=== PATIENT | female | born 1955 | race Native Hawaiian/Other Pacific Islander ===

== ENCOUNTER 2017-07-29 06:41 | Day surgery (SDC) | payer OTHER, SELFPAY ==
[2017-07-13 08:49] VITALS: BMI 17.9
[2017-07-29] VITALS (11 sets, daily range): BP systolic 150–176; BP diastolic 84–97; PULSE 73–99; RESP 11–18; TEMP 36.1–36.9; O2SAT 97–100; BMI 17.9
[2017-07-29] MEDS: LACTATED RINGERS 1,000 ML 42 ML IV (08:30)
[2017-07-29] MEDS: CEFAZOLIN 2 GM/100 ML FROZ.PIGGY IV (08:45)
[2017-07-29] MEDS: BUPIVACAINE 0.5% W/ EPI (PF) 30 ML VIAL INJ (09:07)
--- NOTE | 2017-07-29 09:28 | P.OP_ITS ---
Operative Date/Time/Diagnoses - Date of procedure: 07/29/17 Time of procedure: 09:25 Pre-op diagnosis: Left basal thumb arthritis Post-op diagnosis: same Procedure & Clinicians Procedure: Left LRTI Same procedure as scheduled: Yes Indications: Left basal thumb arthritis Surgeon: Austin Lockwood Grocery Clerk: Sheila Adames Anesthesia Type: General Operative Notes Findings: Arthritis to the 1st basal joint Closure Type: primary Specimen(s): none sent Implants & Drains: Tenodesis screw Applied: implant(s) Estimated Blood Loss (mL): 5 Blood products transfused: none Procedure in detail: On date of service, the patient was met in the holding area. The operative site was signed and witnessed by the OR staff. The surgery was once again discussed with patient, and any remaining questions Were answered fully. Patient was taken back to the operating theater and placed on the operating table in a supine position. Great care was taken to ensure that all bony prominences were properly padded. A well-padded tourniquet was placed up along the upper extremity. A timeout was performed verifying patient's name, procedure, and operative site. The arm was prepped and draped in the normal sterile fashion. An Esmarch was used to exsanguinate the limb and the tourniquet was turned up to 250 mm mercury. A 15 blade was used to incise the skin only in a dorsal radial position. Pickups and tenotomy 3 used to dissect down through the fascial tissue. Great care was taken to ensure that the branches off the superficial radial nerve root identified and protected. Next, an interval was made between EPB and APL. The recurrent branch of the radial artery was identified and protected. The capsular tissues surrounding the basal joints was opened and released around the trapezium and a 360? fashion. This gave us good visualization of the basal joint as well as the trapezial scaphoid joint. Significant arthritis at the basal joints but no sign of any arthritis at the trapezial scaphoid joint. Next the trapezium was removed as well as any potential osteophytes. The wound was then copiously irrigated to remove any remaining bony fragments. The FCR tendon was then harvested. A drill was then used to make a bony tunnel through the first metacarpal. Guidewire was placed through the bony tunnel and the FCR tendon was pulled through the bony tunnel. With the tendon under tension , a tenodesis screw was placed securing the tendon into the bony tunnel. This provided a secure suspension plasty of the thumb, as well as recreating the beak ligament. The wound was irrigated once again. A thick capsular closure was performed using 2-0 Ethibond. The rest of the wound was closed in a layered fashion. The hand was then cleaned, dried, and dressed. Patient was placed into a thumb spica splint. Patient was taken back to the PACU in stable condition. Complications: none Condition: stable Disposition: PACU Plan for aftercare: Splint by 2 weeks followed by a removable brace. No restriction to thumb and wrist range of motion 2 weeks postop
[2017-07-29] MEDS: fentaNYL 100 MCG/2 ML INJ 50 MCG IV ×2 (09:49→09:57)
[2017-07-29] MEDS: OXYCODONE/ACETAMINOPHEN 5/325 TABLET 1 TAB PO (10:53)
--- NOTE | 2017-07-29 11:04 | SUR.PHASEII ---
ASSUMED CARE FROM [place] GRAVES LOW, LOCKED, BROUGHT IN, CALL [place] ATTACHED TO BED. DRESSING TO L WRIST REMAINED C/D/I. VSS, BP HIGH- AT BASELINE PER ... SHE HAS WHITE COAT SYNDROM. PT DRESSED WHEN READY TO GO.
--- NOTE | 2017-07-29 11:18 | SUR.PHASEII ---
PT READY TO GO HOME, ASSISSTED PT TO DRESS.
== END 2017-07-29 11:20 | disposition home or self-care (01) ==
PROVIDERS: PCP Internal Medicine; Visit Provider Orthopaedic Surgery
PROC: (CPT 26540; principal; 2017-07-29 08:30)
DX: M19.042 Primary osteoarthritis, left hand (principal); I10 Essential (primary) hypertension; J45.909 Unspecified asthma, uncomplicated; E27.40 Unspecified adrenocortical insufficiency
CPT/HCPCS: 25447; 25310; J0690; J1100; J2250; J2405; J2704; J3010

== ENCOUNTER → 2017-10-22 10:45 | Outpatient (CLI) | payer OTHER, SELFPAY ==
--- NOTE | 2017-10-22 | DI.MG.S_ITS ---
BILATERAL DIGITAL SCREENING MAMMOGRAM 3D/2D WITH CAD: 10/22/2017 CLINICAL: Routine screening. Comparison is made to exams dated: 08/10/2016 mammogram, 08/07/2015 mammogram, and 08/07/2014 mammogram - [facility]. The tissue of both breasts is predominantly fatty. Current study was also evaluated with a Computer Aided Detection (CAD) system. There is a 0.5 cm oval mass in the left breast posterior depth lateral region seen on the craniocaudal view only. Finding is best noted on tomographic CC slice 39/69 where it appears to localize to the 3 o'clock position of the lateral left breast. This oval mass is not seen on more recent comparison exams but appears to be present on comparison exam of 08/07/2014, where it appeared smaller than on current exam. No other significant masses, calcifications, or other findings are seen in either breast. IMPRESSION: INCOMPLETE: NEEDS ADDITIONAL IMAGING EVALUATION The 0.5 cm oval mass in the left breast is indeterminate and may represent a lymph node. Additional views with possible ultrasound are recommended. This exam was interpreted at Station ID: [id number]. NOTE: For mammograms, a report in lay terms will be sent to the patient. Approximately 15% of breast malignancies will not be visualized mammographically. In the management of a palpable breast mass, a negative mammogram must not discourage biopsy of a clinically suspicious lesion. Electronically Signed By: Familia Smith M.D. ecl/:10/24/2017 22:07:42 letter sent: Additional Imaging Needed ACR BI-RADS Category 0: Incomplete [id number]
== END ==
PROVIDERS: PCP Internal Medicine; Visit Provider Internal Medicine
DX: Z12.31 Encounter for screening mammogram for malignant neoplasm of breast (principal)
CPT/HCPCS: 77063; 77067

== ENCOUNTER 2018-12-07 18:36 | Emergency (ER) | payer OTHER, SELFPAY ==
[2018-12-07 18:50] VITALS: BP 171/82; PULSE 86; RESP 16; TEMP 36.8; O2SAT 99
--- NOTE | 2018-12-07 19:27 | ED_ITS ---
HPI - Back Pain/Injury General Chief Complaint: Back Pain/Injury Stated Complaint: back pain,tingling in legs,nausea Time Seen by Provider: 12/07/18 19:04 Source: patient, family and old records reviewed Mode of arrival: Ambulatory Limitations: no limitations History of Present Illness HPI Narrative: Patient is a 63 year old female with history of adrenal insufficiency and radiculopathy, presenting today with worsening left sided back pain radiating down her leg. She is scheduled to see Dr. Kaye a biochemistry specialist tomorrow but not sure she will make it. She has been taking tylenol only for pain due to gastric ulcers secondary to ibuprofen use. She says today she was bending over scrubbing the bath tub which is something that she typically does. Tonight while cooking dinner she said the pain got much worse. states that a few days ago she moved a 3 gal jug of water. She also earlier felt dizzy and lightheaded she did not pass out she no longer feels dizzy. She has been taking her adrenal insufficiency medications religiously. Her says that she had a crisis a few years ago on wants to make sure that she is not in crisis. MD Complaint: back pain Duration: constant Location: lumbar spine and thoracic spine Quality: sharp Radiation: left leg Related Data Home Medications Medication Instructions Recorded Confirmed amlodipine [Norvasc] 5 mg PO QAM 07/13/17 07/29/17 cetirizine 10 mg PO QAM 07/13/17 07/29/17 clonidine HCl 0.1 mg PO BID 07/13/17 07/29/17 fluticasone propionate 2 puff INHALATION BID 07/13/17 07/29/17 hydrocortisone 15 mg PO QAM 07/13/17 07/29/17 ibuprofen 250 mg PO Q4H PRN 07/13/17 07/28/17 losartan 100 mg PO BEDTIME 07/13/17 07/29/17 omeprazole 20 mg PO QAM 07/13/17 07/29/17 salmeterol 1 inh INHALATION BID 07/13/17 07/29/17 trazodone 25 - 50 mg PO BEDTIME PRN 07/13/17 07/29/17 acetaminophen 500 - 1,000 mg PO Q6H PRN 07/28/17 07/29/17 albuterol sulfate 2 puff INHALATION Q4-6H PRN 07/28/17 07/29/17 docusate calcium 240 mg PO BID 07/28/17 07/29/17 fluticasone propionate 2 spray INTRANASAL DAILY 07/28/17 07/29/17 hydrocortisone 5 mg PO QPM 07/28/17 07/29/17 Previous Rx's Medication Instructions Recorded hydroxyzine HCl 25 mg PO BEDTIME #30 tab 07/29/17 oxycodone-acetaminophen [Percocet] 2 tab PO Q4-6H PRN #60 tab 07/29/17 cyclobenzaprine 5 mg PO TID PRN #10 tab 12/07/18 hydrocodone-acetaminophen [[place]] 1 tab PO Q6H PRN #10 tab 12/07/18 Allergies Allergy/AdvReac Type Severity Reaction Status Date / Time No Known Drug Allergies Allergy Verified 07/13/17 09:48 Review of Systems Review of Systems Narrative: GENERAL: Denies chills, fatigue, malaise, fever, sweats, travel HEENT: Denies sinus pain, ear pain, sore throat, difficulty swallowing, neck pain RESPIRATORY: Denies dyspnea, cough, wheezing, hemoptysis, sputum. CARDIOVASCULAR: All lightheaded Denies chest pain, palpitations, orthopnea, edema GASTROINTESTINAL: Denies nausea, vomiting, abdominal pain, diarrhea, constipation, melena. : Denies dysuria, frequency, incontinence, hematuria, urinary retention, flank pain. MUSCULOSKELETAL: See HPI SKIN: No rash, no erythema, no pruritus NEUROLOGIC: Denies weakness, dizziness, headache, numbness, change in speech, confusion PSYCHIATRIC: No concerning psychosocial issues. 12 point review of systems is negative except for those stated above and HPI Patient History Medical History Adrenal insufficiency (Acute) Asthma (Acute) Chest pain, non-cardiac (Acute) Chronic insomnia (Acute) Chronic pain syndrome (Acute) Constipation (Acute) Esophageal reflux (Acute) Finger infection (Acute) History of hepatitis B (Acute) History of syncope (Acute) History of systemic steroid therapy (Acute) History of urinary tract infection (Acute) Hypertension (Acute) Hyponatremia (Acute) Left hand pain (Acute) Left wrist pain (Acute) Murmur (Acute) Osteoporosis (Acute) Pain of left thumb (Acute) Prediabetes (Acute) Seasonal allergies (Acute) Surgical History H/O: hysterectomy (Acute) History of colonoscopy (Acute) Hx of cholecystectomy (Acute) Hx of prior ablation treatment (Acute) Social History household members: spouse Smoking Status: Never smoker alcohol intake: former Substance Use Type: does not use Exam Initial Vital Signs Initial Vital Signs: Vital Signs Temperature 98.2 F 12/07/18 18:50 Pulse Rate 86 12/07/18 18:50 Respiratory Rate 16 12/07/18 18:50 Blood Pressure 171/82 H 12/07/18 18:50 Pulse Oximetry 99 12/07/18 18:50 GENERAL: Well-appearing female she is tearful upon questioning. HEENT: Head atraumatic,EOMI, pupils reactive, face symmetric CARDIOVASCULAR: Regular rate and rhythm without murmurs, rubs or gallops. RESPIRATORY: Breath sounds equal bilaterally, no wheezes rales or rhonchi. ABDOMEN: Soft, nontender. Normoactive bowel sounds all 4 quadrants. No guarding or rebound. BACK: No vertebral tenderness, no step-offs, slightly decreased sensation in left leg but strength is equal bilaterally. she states radiation is lateral. No change in sensation in the saddle area EXTREMITIES: Normal range of motion, no clubbing or edema. Neurovascularly intact NEUROLOGICAL: Alert and oriented x4.Normal gait and speech. SKIN: Warm, dry, no laceration, no petechiae, no rashes or lesions. Course Orders Ordered: ED Orders 12/07/18 19:45 Complete Blood Count AUTO DIFF Stat Comprehensive Metabolic Panel Stat Discontinued Medications Hydrocodone Bitart/Acetaminophen (Vicodin Prepack) 1 bottle MISC SEEINSTR ONE Stop: 12/07/18 20:56 Last Admin: 12/07/18 21:21 Dose: 1 bottle Documented by: AGATA Hydrocodone Bitart/Acetaminophen ([place] 5/325) 1 tab PO NOW ONE Stop: 12/07/18 21:16 Last Admin: 12/07/18 21:20 Dose: 1 tab Documented by: AGATA Cyclobenzaprine HCl (Flexeril) 5 mg PO NOW ONE Stop: 12/07/18 20:37 Last Admin: 12/07/18 20:44 Dose: 5 mg Documented by: AGATA Cyclobenzaprine HCl (Flexeril 10 Mg Prepack) 1 bottle MISC SEEINSTR ONE Stop: 12/07/18 20:56 Last Admin: 12/07/18 21:21 Dose: 1 bottle Documented by: AGATA Morphine Sulfate (Morphine) 2 mg IV NOW ONE Stop: 12/07/18 19:39 Last Admin: 12/07/18 20:00 Dose: 2 mg Documented by: DEMETRI Vital Signs Vital signs: Vital Signs - 8 hr 12/07/18 18:50 12/07/18 20:33 Temperature 98.2 F Pulse Rate 86 70 Respiratory Rate 16 14 Blood Pressure 171/82 H Blood Pressure [Right Arm] 160/87 H Pulse Oximetry 99 98 MDM - Back Pain/Injury Lab Data Attestation: I reviewed the patient's lab results. Result diagrams: 12/07/18 19:45 12/07/18 19:45 Labs: Lab Results 12/07/18 12/07/18 Range/Units 19:45 19:45 WBC 5.0 (4.5-11.0) X10^3/uL RBC 4.18 (4.0-5.2) X10^6/uL Hgb 13.6 (12.0-16.0) g/dL Hct 38.9 (36-46) % MCV 92.9 (80-100) fL MCH 32.4 (26-34) PG MCHC 34.9 (30-36) % RDW 13.6 (11.6-14.8) % Plt Count 280 (150-400) X10^3/uL Neut % (Auto) 60.7 (50-75) % Lymph % (Auto) 24.2 L (25-40) % Saline % (Auto) 10.4 (3-14) % Eos % (Auto) 3.8 (2-4) % Baso % (Auto) 0.9 (0-2) % Neut # (Auto) 3100 (4693-6866) /uL Lymph # (Auto) 1200 (6347-2712) /uL Saline # (Auto) 500 (0-900) /uL Eos # (Auto) 200 (0-450) /uL Baso # (Auto) 0 (0-100) /uL Sodium 132 L (137-145) mmol/L Potassium 3.8 (3.4-5.1) mmol/L Chloride 94 L (98-107) mmol/L Carbon Dioxide 25 (22-32) mmol/L BUN 9 (7-17) mg/dL Creatinine 0.40 L (0.52-1.04) mg/dL Estimated GFR > 60.0 (>60) mL/min BUN/Creatinine Ratio 22.5 H (6-22) Glucose 100 (80-110) mg/dL Calcium 9.7 (8.4-10.2) mg/dL Total Bilirubin 0.4 (0.2-1.3) mg/dL AST 39 H (14-36) IU/L ALT 19 (9-52) IU/L Alkaline Phosphatase 101 (38-126) U/L Total Protein 8.8 H (6.3-8.2) g/dL Albumin 5.1 H (3.5-5.0) g/dL Globulin 3.7 (1.7-4.1) g/dL Albumin/Globulin Ratio 1.4 (1.0-2.8) MDM Narrative Medical decision making narrative: Patient is unlikely to be an adrenal insufficiency she is not nauseous or vomiting no abdominal pain. She not had any fever I do not think she has water house Tom since syndrome there are no purpura or infectious signs. She does have no radiculopathy she has had an MRI she sees a spinal surgeon tomorrow. At this time will control her back pain. And follow up closely tomorrow as previously arranged. She is given Flexeril and [place] and morphine in the ED. She is also given pre packs and prescriptions for both. Discharge Plan Departure Patient Disposition: Home Clinical Impression: Acute exacerbation of chronic low back pain Radiculopathy Qualifiers: Spinal region: lumbosacral Qualified Code(s): M54.17 - Radiculopathy, lumbosacral region Discharge Date/Time: 12/07/18 21:30 Instructions: DI for Back Pain With Sciatica Activity Restrictions/Additional Instructions: *You have been diagnosed with acute on chronic back pain with radiculopathy *What to do: At this time no sign of adrenal insufficiency. I recommend that you do no strenuous activity, no heavy lifting nothing more than 10 lb, no sitting for more than 30 minutes, light activity such as walking for short distances may be acceptable. *Continue to take medications as directed [place] 1 tablet every 6 hours if needed for severe pain For Flexeril 5 mg every 8 hours if needed for pain *Follow up with your primary care provider in 2-3 days *Return to ER if you should have a change in urination, leg weakness, fevers, passing out, dizziness, lightheadedness or any new, worsening or concerning symptoms CONTROLLED SUBSTANCE DISCHARGE (Narcotoic/benzodiazepine/Flexeril/Phenergan) 1. You have been prescribed narcotic medications, it does have acetamino phen/Tylenol/paracetamol in it so do not take extra Tylenol or Tylenol containing products 2. Please understand that we cannot provide further refills of narcotics, benzodiazepines or controlled substances through the ED and her pain management will need to be through your provider. 3. While on these medications you cannot drive or operate heavy machinery. 4. You cannot sign legal documents or perform any duties such as this. 5. As long as you're taking opiate pain medications he should also be taking a stool softener such as Colace, Dulcolax, MiraLAX or prune juice, to help avoid constipation. Prescriptions: New hydrocodone-acetaminophen [[place]] 5-325 mg tablet 1 tab PO Q6H PRN (Reason: pain) Qty: 10 RF: 0 cyclobenzaprine 5 mg tablet 5 mg PO TID PRN (Reason: muscle spasm) Qty: 10 RF: 0 No Action hydrocortisone 5 mg Tablet 15 mg PO QAM RF: 0 clonidine HCl 0.1 mg Tablet 0.1 mg PO BID RF: 0 trazodone 50 mg Tablet 25 - 50 mg PO BEDTIME PRN (Reason: Sleep) RF: 0 cetirizine 10 mg Tablet 10 mg PO QAM RF: 0 ibuprofen 200 mg Capsule 250 mg PO Q4H PRN (Reason: Pain) RF: 0 amlodipine [Norvasc] 10 mg Tablet 5 mg PO QAM RF: 0 salmeterol 50 mcg/dose Blister With Device 1 inh INHALATION BID RF: 0 omeprazole 20 mg Capsule,Delayed Release(Dr/Ec) 20 mg PO QAM RF: 0 fluticasone propionate 220 mcg/actuation Hfa Aerosol Inhaler 2 puff INHALATION BID RF: 0 losartan 100 mg Tablet 100 mg PO BEDTIME RF: 0 hydrocortisone 5 mg Tablet 5 mg PO QPM RF: 0 docusate calcium 240 mg Capsule 240 mg PO BID RF: 0 acetaminophen 500 mg Tablet 500 - 1,000 mg PO Q6H PRN (Reason: pain) RF: 0 albuterol sulfate 90 mcg/actuation Hfa Aerosol Inhaler 2 puff INHALATION Q4-6H PRN (Reason: sob) RF: 0 fluticasone propionate 50 mcg/actuation [place],Suspension 2 spray INTRANASAL DAILY RF: 0 oxycodone-acetaminophen [Percocet] 5-325 mg tablet 2 tab PO Q4-6H PRN (Reason: pain) Qty: 60 RF: 0 hydroxyzine HCl 25 mg Tablet 25 mg PO BEDTIME Qty: 30 RF: 0 Referrals: Monica Kaye MD [Physician] - Vanda Sharif MD [Primary Care Provider] -
[2018-12-07 19:59] LABS: Add Manual Diff / Slide Review NO; Basophils Absolute Auto 0 /uL (0-100); Basophils Percent Auto 0.9 % (0-2); Eosinophils Absolute Auto 200 /uL (0-450); Eosinophils Percent Auto 3.8 % (2-4); Hematocrit 38.9 % (36-46); Hemoglobin 13.6 g/dL (12.0-16.0); Lymphocytes Absolute Auto 1200 /uL (1100-4500); Lymphocytes Percent Auto 24.2 % (25-40); Mean Corpuscular HGB Conc 34.9 % (30-36); Mean Corpuscular Hemoglobin 32.4 PG (26-34); Mean Corpuscular Volume 92.9 fL (80-100); Monocytes Absolute Auto 500 /uL (0-900); Monocytes Percent Auto 10.4 % (3-14); Neutrophils Absolute Auto 3100 /uL (1500-7000); Neutrophils Percent Auto 60.7 % (50-75); Platelet Count 280 X10^3/uL (150-400); Red Blood Cell Count 4.18 X10^6/uL (4.0-5.2); Red Cell Distribution Width 13.6 % (11.6-14.8)
[2018-12-07] MEDS: MORPHINE 2 MG/ML INJ IV (20:00)
[2018-12-07 20:14] LABS: Alanine Aminotransferase 19 IU/L (9-52); Albumin 5.1 g/dL (3.5-5.0); Albumin Globulin Ratio 1.4 (1.0-2.8); Alkaline Phosphatase 101 U/L (38-126); Aspartate Aminotransferase 39 IU/L (14-36); BUN Creatinine Ratio 22.5 (6-22); Bilirubin Total 0.4 mg/dL (0.2-1.3); Blood Urea Nitrogen 9 mg/dL (7-17); Calcium 9.7 mg/dL (8.4-10.2); Carbon Dioxide 25 mmol/L (22-32); Chloride 94 mmol/L (98-107); Estimated Glomerular Filt Rate > 60.0 mL/min (>60); Globulin 3.7 g/dL (1.7-4.1); Glucose 100 mg/dL (80-110); HEMOLYSIS < 15 (0-50); Potassium 3.8 mmol/L (3.4-5.1); Sodium 132 mmol/L (137-145); Total Protein 8.8 g/dL (6.3-8.2)
[2018-12-07 20:33] VITALS: BP 160/87; PULSE 70; RESP 14; O2SAT 98
[2018-12-07] MEDS: CYCLOBENZAPRINE 5 MG TABLET PO (20:44)
[2018-12-07] MEDS: HYDROCODONE/ACET 5/325 TABLET 1 TAB PO (21:20)
[2018-12-07] MEDS: CYCLOBENZAPRINE 10 MG PREPACK 1 BOTTLE MISC (21:21)
[2018-12-07] MEDS: HYDROCODONE/ACET 5/325 PREPACK 1 BOTTLE MISC (21:21)
== END 2018-12-07 21:30 | disposition home or self-care (01) ==
PROVIDERS: Emergency Provider Emergency Medicine; PCP Internal Medicine
DX: M54.5 Low back pain (principal); M54.17 Radiculopathy, lumbosacral region
CPT/HCPCS: 36415; 80053; 85025; 96374; 99282; 99284; J2270

== ENCOUNTER 2019-03-28 10:41 | Day surgery (SDC) | payer MEDICARE, OTHER, SELFPAY ==
[2019-03-28 11:14] VITALS: BMI 23.6
[2019-03-28 11:28] VITALS: BP 114/71; PULSE 69; RESP 16; TEMP 36.8; O2SAT 97
[2019-03-28] MEDS: SODIUM CHLORIDE 0.9% 1,000 ML 200 ML IV (11:32)
--- NOTE | 2019-03-28 12:21 | PM.HP.1 ---
History of Present Illness History of Present Illness Date Patient Seen: 03/28/19 Time Patient Seen: 12:21 Chief complaint: [id number] Narrative: This is a 64-year-old woman with history of chronic constipation, adrenal insufficiency, hypertension, GERD, who comes in for screening colonoscopy. Her last colonoscopy was over 10 years ago, and she was told to follow up in 10 years. She denies melena, hematochezia, or unexplained weight loss. She does have chronic constipation for which she used to take a stool softener, but has stopped doing that. ROS: Review of systems is positive for asthma, shortness of breath, sinus drainage, cough, arthritis pain in left leg, reflux symptoms, constipation, headaches, seasonal allergies, PET allergies. Thirteen system review is otherwise negative other than as mentioned below and in HPI. PE: GENERAL: Well groomed and cooperative. Appears stated age. Answers questions promptly and appropriately. Vital signs noted. HENT: Normocephalic, atraumatic. Hearing intact. Oral mucosa is pink and moist. Hoarse voice EYES: Conjunctiva pink, sclera white, no periorbital swelling. CARDIOVASCULAR: Regular rate. No pedal edema. RESPIRATORY: Non-tachypneic, breathing comfortably on room air. GASTROINTESTINAL: Abdomen soft and non-distended GENITALURINARY: No flank tenderness. MUSCULOSKELETAL: Equal tone and mass bilaterally. SKIN: Warm, dry, soft, appropriate color for ethnicity. No other lesions, rashes, or wounds. NEURO: Alert and Oriented X 3. Tremulous. No gross sensory deficits, or cognitive issues. PSYCH: Appropriate affect and mood. Patient History Medical History Adrenal insufficiency (Acute) Asthma (Acute) Chest pain, non-cardiac (Acute) Chronic insomnia (Acute) Chronic pain syndrome (Acute) Constipation (Acute) Esophageal reflux (Acute) Finger infection (Acute) History of hepatitis B (Acute) History of syncope (Acute) History of systemic steroid therapy (Acute) History of urinary tract infection (Acute) Hypertension (Acute) Hyponatremia (Acute) Left hand pain (Acute) Left wrist pain (Acute) Murmur (Acute) Osteoporosis (Acute) Pain of left thumb (Acute) Prediabetes (Acute) Seasonal allergies (Acute) Surgical History H/O: hysterectomy (Acute) History of colonoscopy (Acute) Hx of cholecystectomy (Acute) Hx of prior ablation treatment (Acute) Family & Social History Social History: household members spouse Tobacco & Substance use: Smoking Status Never smoker alcohol intake former Substance Use Type does not use Meds Home Medications and Allergies Home Medications Medication Instructions Recorded Confirmed Type amlodipine [Norvasc] 10 mg PO QAM 07/13/17 03/28/19 History cetirizine 10 mg PO QAM 07/13/17 03/28/19 History fluticasone propionate 2 puff INHALATION BID 07/13/17 03/28/19 History hydrocortisone 15 mg PO QAM 07/13/17 03/28/19 History losartan 100 mg PO BEDTIME 07/13/17 03/28/19 History omeprazole 20 mg PO QAM 07/13/17 03/28/19 History salmeterol 1 inh INHALATION BID 07/13/17 03/28/19 History trazodone 25 - 50 mg PO BEDTIME PRN 07/13/17 03/28/19 History albuterol sulfate 2 puff INHALATION Q4-6H PRN 07/28/17 03/28/19 History fluticasone propionate 2 spray INTRANASAL DAILY 07/28/17 03/28/19 History hydrocortisone 5 mg PO QPM 07/28/17 03/28/19 History Allergies Allergy/AdvReac Type Severity Reaction Status Date / Time No Known Drug Allergies Allergy Verified 03/28/19 11:08 Exam Vital Signs (past 8 hours): - 03/28/19 11:28 Temperature 98.2 F Pulse Rate 69 Respiratory Rate 16 Blood Pressure 114/71 Pulse Oximetry 97 Oxygen Delivery Method Room Air Assessment & Plan Assessment and plan (1) At average risk for colon cancer: Current visit: Yes Status: Acute (2) Encounter for screening colonoscopy: Current visit: Yes Status: Acute (3) Chronic constipation: Current visit: Yes Status: Acute Assessment & Plan narrative: This is a 64-year-old woman here for screening colonoscopy. Risks and benefits of screening colonoscopy and possible polypectomy were discussed with the patient including risk of bleeding, perforation, need for additional procedures, risks of anesthesia. The patient desires to proceed with the colonoscopy procedure. Quality VTE Deep Vein Thrombosis/Pulmonary Embolism Present on Admission: No
--- NOTE | 2019-03-28 12:50 | PM.OP.ENDO ---
Operative Date/Time/Diagnoses Date of procedure: 03/28/19 Time of procedure: 12:51 Pre-op diagnosis: Average risk for colon cancer, chronic constipation, last colonoscopy over 10 years ago Post-op diagnosis: same Procedure & Clinicians Study performed: Screening colonoscopy Same procedure as scheduled: Yes Indications: Need for colon cancer screening Surgeon: Sandy Westbrook Procedure Notes SCOAP/Timeout: Performed Procedure in detail: The patient was brought to the room and placed in left lateral decubitus position with all bony prominences padded. A time-out was performed and then the patient was given procedural sedation starting with 2 mg of Versed and 100 mcg of fentanyl. Vitals were monitored throughout the procedure and remained stable. Once adequately sedated the procedure was begun. A rectal exam was performed revealing no abnormalities. The colonoscope was then introduced to the rectum and advanced to the cecum in the usual fashion. The cecum was identified by the appendiceal orifice, the mucosal tri-fold, and the ileocecal valve. The scope was then retracted while rotating side to side and examining each mucosal fold. At the conclusion of the procedure retroflexion was performed and small grade 1-2 internal hemorrhoids without stigmata of bleeding were seen. The scope was then withdrawn from the rectum the procedure was concluded. The patient tolerated the procedure well and was transferred to the PACU in stable condition. Scope withdrawal time: 8 Sedation minutes: 16 Findings: other findings (Normal colon) Specimen(s): none sent Complications: none Impression: Normal colon Post-procedure Recommendations: Colonscopy in 10 years Plan for aftercare: Consider Metamucil daily for constipation, consider adding a stool softener such as docusate, or laxative such as senna or MiraLax if improvement in bowel habits is not achieved with Metamucil alone Follow up: as needed Disposition: PACU
[2019-03-28] MEDS: fentaNYL 250 MCG/5 ML INJ IV (12:52)
[2019-03-28] MEDS: MIDAZOLAM 5 MG/5 ML VIAL IV (12:52)
[2019-03-28 12:53] VITALS: BP 110/65; PULSE 76; RESP 15; TEMP 36.4; O2SAT 99
[2019-03-28 12:58] VITALS: BP 92/53; PULSE 75; RESP 16; O2SAT 99
[2019-03-28 13:03] VITALS: BP 98/54; PULSE 82; RESP 15; O2SAT 100
[2019-03-28 13:08] VITALS: BP 116/63; PULSE 74; RESP 16; TEMP 36.4; O2SAT 100
[2019-03-28 13:31] VITALS: BP 125/77; PULSE 79; RESP 15; TEMP 36.3; O2SAT 100
== END 2019-03-28 13:38 | disposition home or self-care (01) ==
PROVIDERS: PCP Internal Medicine; Referring Provider Surgery; Visit Provider Surgery
PROC: 0DJD8ZZ Inspection of Lower Intestinal Tract, Via Natural or Artificial Opening Endoscopic (ICD-10-PCS; CPT 45378; principal; 2019-03-28 12:15)
DX: Z12.11 Encounter for screening for malignant neoplasm of colon (principal); K59.09 Other constipation; K64.0 First degree hemorrhoids
CPT/HCPCS: G0121; 99152; J2250; J3010

== ENCOUNTER 2020-07-27 17:24 | Emergency (ER) | payer MEDICARE, OTHER, SELFPAY ==
[2020-07-27] VITALS (8 sets, daily range): BP systolic 137–201; BP diastolic 67–98; PULSE 70–89; RESP 15–16; TEMP 36.9; O2SAT 96–99; BMI 24.2
--- NOTE | 2020-07-27 17:33 | DI.RAD.S_ITS ---
PROCEDURE: XR CHEST 1V INDICATIONS: chest pain, weakness, cough TECHNIQUE: One view of the chest was acquired. COMPARISON: None. FINDINGS: Surgical changes and devices: Cholecystectomy clips are seen. Lungs and pleura: On this semiupright portable chest examination, no large pneumothorax or large pleural effusions are seen. No focal infiltrates are seen. Mediastinum: Mediastinal contours appear normal. Heart size is normal. Bones and chest wall: No suspicious bony lesions. Age-appropriate bony degenerative changes are seen. Overlying soft tissues appear unremarkable. IMPRESSION: Portable chest within normal limits. Dictated by: Raheem Rowe M.D. on 07/27/2020 at 16:52 Approved by: Raheem Rowe M.D. on 07/27/2020 at 16:53
[2020-07-27] MEDS: SODIUM CHLORIDE 0.9% 1,000 ML 125 ML IV (18:02)
[2020-07-27 18:08] LABS: Add Manual Diff / Slide Review NO; Basophils Absolute Auto 100 /uL (0-100); Basophils Percent Auto 1.3 % (0-2); Eosinophils Absolute Auto 200 /uL (0-450); Eosinophils Percent Auto 3.8 % (2-4); Hematocrit 37.9 % (36-46); Hemoglobin 12.8 g/dL (12.0-16.0); Lymphocytes Absolute Auto 1600 /uL (1100-4500); Lymphocytes Percent Auto 29.1 % (25-40); Mean Corpuscular HGB Conc 33.8 % (30-36); Mean Corpuscular Hemoglobin 31.7 PG (26-34); Monocytes Absolute Auto 600 /uL (0-900); Monocytes Percent Auto 11.1 % (3-14); Neutrophils Absolute Auto 3100 /uL (1500-7000); Neutrophils Percent Auto 54.7 % (50-75); Platelet Count 313 X10^3/uL (150-400); Red Blood Cell Count 4.03 X10^6/uL (4.0-5.2); White Blood Cell Count 5.6 X10^3/uL (4.5-11.0)
[2020-07-27 18:21] LABS: Alanine Aminotransferase 17 IU/L (<35); Albumin 4.8 g/dL (3.5-5.0); Albumin Globulin Ratio 1.2 (1.0-2.8); Alkaline Phosphatase 89 U/L (38-126); Aspartate Aminotransferase 36 IU/L (14-36); BUN Creatinine Ratio 25.6 (6-22); Bilirubin Total 0.3 mg/dL (0.2-1.3); Blood Urea Nitrogen 11 mg/dL (7-17); C-Reactive Protein Quant < 0.5 mg/dL (<1.0); Calcium 9.8 mg/dL (8.4-10.2); Carbon Dioxide 27 mmol/L (22-32); Chloride 97 mmol/L (98-107); Creatine Kinase 98 U/L (30-135); Estimated Glomerular Filt Rate > 60.0 mL/min (>60); Globulin 3.9 g/dL (1.7-4.1); Glucose 100 mg/dL (80-110); HEMOLYSIS < 15 (0-50); Magnesium 2.3 mg/dL (1.6-2.3); Potassium 3.8 mmol/L (3.4-5.1); Sodium 135 mmol/L (137-145); Total Protein 8.7 g/dL (6.3-8.2)
[2020-07-27 18:26] LABS: COVID19 -Nasal RAPID Negative (Negative)
[2020-07-27 18:31] LABS: NT-proBNP (BNP-Adult 18+) 33 pg/mL (<125); Troponin I < 0.012 ng/mL (0.01-0.034)
[2020-07-27 18:35] LABS: Procalcitonin 0.03 ng/mL (<0.5)
--- NOTE | 2020-07-27 19:07 | ED.GENADULT ---
HPI - General Adult General Chief complaint: Weakness Stated complaint: issues after cortisone shot/needs blood work Time Seen by Provider: 07/27/20 17:33 Source: patient Mode of arrival: Ambulatory Limitations: no limitations History of Present Illness HPI narrative: Patient is a 65-year-old female who has a history of adrenal insufficiency and is on hydrocortisone on a daily basis who received a cortisone shot in her right knee secondary to arthritis a couple days ago. States since that time she has felt fatigued and weak and also a slight headache. She contacted her longshore equipment operator who told her to come to the emergency department because she needed blood work for further evaluation. Related Data Home Medications Medication Instructions Recorded Confirmed amlodipine [Norvasc] 10 mg PO QAM 07/13/17 03/28/19 cetirizine 10 mg PO QAM 07/13/17 03/28/19 fluticasone propionate 2 puff INHALATION BID 07/13/17 03/28/19 hydrocortisone 15 mg PO QAM 07/13/17 03/28/19 losartan 100 mg PO BEDTIME 07/13/17 03/28/19 omeprazole 20 mg PO QAM 07/13/17 03/28/19 salmeterol 1 inh INHALATION BID 07/13/17 03/28/19 trazodone 25 - 50 mg PO BEDTIME PRN 07/13/17 03/28/19 albuterol sulfate 2 puff INHALATION Q4-6H PRN 07/28/17 03/28/19 fluticasone propionate 2 spray INTRANASAL DAILY 07/28/17 03/28/19 hydrocortisone 5 mg PO QPM 07/28/17 03/28/19 Allergies Allergy/AdvReac Type Severity Reaction Status Date / Time No Known Drug Allergies Allergy Verified 07/27/20 17:33 Review of Systems Constitutional Constitutional: Reports fatigue, Reports lethargy and Reports malaise Eyes Eyes: Reports system reviewed and no additional complaints, except as documented Cardiovascular Cardiovascular: Reports system reviewed and no additional complaints, except as documented Respiratory Respiratory: Reports system reviewed and no additional complaints, except as documented Gastrointestinal Gastrointestinal: Reports system reviewed and no additional complaints, except as documented Integumentary/Breasts Skin/Breast: Denies rash Neurologic Neurologic: Reports system reviewed and no additional complaints, except as documented Psychiatric Psychiatric: Reports system reviewed and no additional complaints, except as documented Endocrine Endocrine: Reports fatigue Hematologic/Lymphatic On Anticoagulants: No Allergic/Immunologic Allergic/Immunologic: Reports system reviewed and no additional complaints, except as documented Patient History Medical History Adrenal insufficiency Asthma Chest pain, non-cardiac Chronic insomnia Chronic pain syndrome Constipation Esophageal reflux Finger infection History of hepatitis B History of syncope History of systemic steroid therapy History of urinary tract infection Hypertension Hyponatremia Left hand pain Left wrist pain Murmur Osteoporosis Pain of left thumb Prediabetes Seasonal allergies Surgical History H/O: hysterectomy History of colonoscopy Hx of cholecystectomy Hx of prior ablation treatment Social History household members: spouse Smoking Status: Never smoker alcohol intake: former Smoking Status: Never smoker alcohol intake frequency: holidays/special occasions only Substance Use Type: does not use Exam Initial Vital Signs Initial Vital Signs: Vital Signs Temperature 98.4 F 07/27/20 17:28 Pulse Rate 89 07/27/20 17:28 Respiratory Rate 15 07/27/20 17:28 Blood Pressure 201/98 H 07/27/20 17:28 Pulse Oximetry 98 07/27/20 17:28 Const General: cooperative, comfortable and well developed Limitations: mental status not altered HENMT Head: normal to inspection and normocephalic Resp Effort & Inspection: normal respiratory effort Auscultation: clear to auscultation bilaterally Cardio Rate: regular rate Rhythm: regular rhythm GI Inspection: non-distended Palpation: soft Skin Lesions: no lesions Rashes: no rashes Neuro General: patient alert and patient awake Cognition: normal cognition Speech: speech normal Extrem General: capillary refill normal Other: Patient with a small bruise around the area of her right knee where the injection was performed without any signs of infection Psych Appearance: grossly normal and well kempt Course Orders Ordered: ED Orders 07/27/20 17:33 XR chest 1V Stat 07/27/20 17:34 EKG-12 Lead Stat 07/27/20 17:55 C-Reactive Protein Quant Stat COVID19 -Nasal swab/Pre-Proc Stat Complete Blood Count AUTO DIFF Stat Comprehensive Metabolic Panel Stat Magnesium Stat NT-proBNP (BNP-Adult 18+) Stat Procalcitonin Stat Troponin & CK Cardiac Panel Stat 07/27/20 18:45 Blood Culture Stat Discontinued Medications Sodium Chloride (Normal Saline 0.9%) 1,000 mls @ 125 mls/hr IV CONT QUINCY Last Infusion: 07/27/20 19:21 Dose: 125 mls/hr Documented by: Admin: 07/27/20 18:02 Dose: 125 mls/hr Documented by: SULEIMAN Vital Signs Vital signs: Vital Signs - 8 hr 07/27/20 17:28 07/27/20 17:55 07/27/20 17:57 Temperature 98.4 F Pulse Rate 89 78 76 Respiratory Rate 15 Blood Pressure 201/98 H 164/77 H Pulse Oximetry 98 96 99 07/27/20 18:00 07/27/20 18:01 07/27/20 18:30 Temperature Pulse Rate 76 74 70 Respiratory Rate Blood Pressure 160/76 H 137/74 Pulse Oximetry 98 98 98 07/27/20 19:00 07/27/20 19:19 Temperature Pulse Rate 71 70 Respiratory Rate 16 Blood Pressure 138/72 147/67 H Pulse Oximetry 97 98 Medical Decision Making Lab Data Lab results reviewed: Yes I reviewed the patient's lab results. Result diagrams: 07/27/20 17:55 07/27/20 17:55 Labs: Lab Results 07/27/20 07/27/20 07/27/20 Range/Units 17:55 17:55 17:55 WBC 5.6 (4.5-11.0) X10^3/uL RBC 4.03 (4.0-5.2) X10^6/uL Hgb 12.8 (12.0-16.0) g/dL Hct 37.9 (36-46) % MCV 94.0 (80-100) fL MCH 31.7 (26-34) PG MCHC 33.8 (30-36) % RDW 13.0 (11.6-14.8) % Plt Count 313 (150-400) X10^3/uL Neut % (Auto) 54.7 (50-75) % Lymph % (Auto) 29.1 (25-40) % [place] % (Auto) 11.1 (3-14) % Eos % (Auto) 3.8 (2-4) % Baso % (Auto) 1.3 (0-2) % Neut # (Auto) 3100 (1391-9597) /uL Lymph # (Auto) 1600 (1396-7721) /uL [place] # (Auto) 600 (0-900) /uL Eos # (Auto) 200 (0-450) /uL Baso # (Auto) 100 (0-100) /uL Sodium 135 L (137-145) mmol/L Potassium 3.8 (3.4-5.1) mmol/L Chloride 97 L (98-107) mmol/L Carbon Dioxide 27 (22-32) mmol/L BUN 11 (7-17) mg/dL Creatinine 0.43 L (0.52-1.04) mg/dL Estimated GFR > 60.0 (>60) mL/min BUN/Creatinine Ratio 25.6 H (6-22) Glucose 100 (80-110) mg/dL Calcium 9.8 (8.4-10.2) mg/dL Magnesium 2.3 (1.6-2.3) mg/dL Total Bilirubin 0.3 (0.2-1.3) mg/dL AST 36 (14-36) IU/L ALT 17 (<35) IU/L Alkaline Phosphatase 89 (38-126) U/L Total Creatine Kinase 98 (30-135) U/L CK-MB (CK-2) TNP CK-MB (CK-2) Rel Index TNP Troponin I < 0.012 (0.01-0.034) ng/mL C-Reactive Protein < 0.5 (<1.0) mg/dL NT-Pro-B Natriuret Pep 33 (<125) pg/mL Total Protein 8.7 H (6.3-8.2) g/dL Albumin 4.8 (3.5-5.0) g/dL Globulin 3.9 (1.7-4.1) g/dL Albumin/Globulin Ratio 1.2 (1.0-2.8) Procalcitonin 0.03 (<0.5) ng/mL SARS-CoV-2 (PCR) Negative (Negative) Urine Dip Bedside Urine Glucose Negative Bedside Urine Bilirubin - Negative Bedside Urine Ketone - Negative Urine Specific [place] 1.010 Bedside Urine Occult Blood - Negative Bedside Urine pH 7.0 Bedside Urine Protein - Negative Bedside Urine Urobilinogen - Negative Bedside Urine Nitrite - Negative Bedside Urine Leukocytes - Negative Esterase Point of care testing: Urine Dip Bedside Urine Glucose Negative Bedside Urine Bilirubin - Negative Bedside Urine Ketone - Negative Urine Specific [place] 1.010 Bedside Urine Occult Blood - Negative Bedside Urine pH 7.0 Bedside Urine Protein - Negative Bedside Urine Urobilinogen - Negative Bedside Urine Nitrite - Negative Bedside Urine Leukocytes - Negative Esterase Imaging Data Chest x-ray: Radiologist's Impression: [address] [id number] ReportSigned Patient: Jessica Doran#: [id number]: 4Acct:[id number]/Sex: 65 / FDate of Service: 07/27/20Loc: EDAccession Number: [id number] Procedure: XR chest 1V Ordering Provider: Cleveland Shi D.O. PROCEDURE: XR CHEST 1V INDICATIONS: chest pain, weakness, cough TECHNIQUE: One view of the chest was acquired. COMPARISON: None. FINDINGS: Surgical changes and devices: Cholecystectomy clips are seen. Lungs and pleura: On this semiupright portable chest examination, no large pneumothorax or large pleural effusions are seen. No focal infiltrates are seen. Mediastinum: Mediastinal contours appear normal. Heart size is normal. Bones and chest wall: No suspicious bony lesions. Age-appropriate bony degenerative changes are seen. Overlying soft tissues appear unremarkable. IMPRESSION: Portable chest within normal limits. Dictated by: Raheem Rowe M.D. on 07/27/2020 at 16:52 Approved by: Raheem Rowe M.D. on 07/27/2020 at 16:53 ECG Data Attestation: I personally reviewed and interpreted this ECG as follows: Prior ECG tracings: not available for review Interpretation: Sinus rhythm Ventricular rate is 75 Normal axis Normal QRS Normal QTC No ST T wave changes MDM Narrative Medical decision making narrative: Patient's labs are unremarkable. She does have a unremarkable exam. Low suspicion for adrenal crisis. She is not hypotensive. I feel we can hold on further workup for now. Provided reassurance to the patient. She was given return precautions. She expressed understanding agreement. Discharge Plan Departure Patient Disposition: Home Clinical Impression: Malaise and fatigue Activity Restrictions/Additional Instructions: Your labs today are reassuring. There is no signs of any infection. I recommend that you continue with your daily steroids as directed by your longshore equipment operator. Contact your primary provider for follow-up. Return to the emergency department for any new or worsening symptoms Prescriptions: No Action hydrocortisone 5 mg Tablet 15 mg PO QAM RF: 0 trazodone 50 mg Tablet 25 - 50 mg PO BEDTIME PRN (Reason: Sleep) RF: 0 cetirizine 10 mg Tablet 10 mg PO QAM RF: 0 amlodipine [Norvasc] 10 mg Tablet 10 mg PO QAM RF: 0 salmeterol 50 mcg/dose Blister With Device 1 inh INHALATION BID RF: 0 omeprazole 20 mg Capsule,Delayed Release(Dr/Ec) 20 mg PO QAM RF: 0 fluticasone propionate 220 mcg/actuation Hfa Aerosol Inhaler 2 puff INHALATION BID RF: 0 losartan 100 mg Tablet 100 mg PO BEDTIME RF: 0 hydrocortisone 5 mg Tablet 5 mg PO QPM RF: 0 albuterol sulfate 90 mcg/actuation Hfa Aerosol Inhaler 2 puff INHALATION Q4-6H PRN (Reason: sob) RF: 0 fluticasone propionate 50 mcg/actuation [place],Suspension 2 spray INTRANASAL DAILY RF: 0 Referrals: Catherine Edgar MD [Primary Care Provider] -
== END 2020-07-27 19:27 | disposition home or self-care (01) ==
PROVIDERS: Emergency Medicine; Emergency Provider Emergency Medicine; PCP Internal Medicine
DX: R53.83 Other fatigue (principal); R07.9 Chest pain, unspecified; R51.9 Headache, unspecified; R05 Cough; Z20.822 Contact with and (suspected) exposure to COVID-19
CPT/HCPCS: 36415; 71045; 80053; 81003; 82550; 83735; 83880; 84145; 84484; 85025; 86140; 87040; 87635; 93005; 96360; 99284; C9803

== ENCOUNTER → 2020-08-20 12:22 | Outpatient (CLI) | payer MEDICARE, OTHER, SELFPAY ==
--- NOTE | 2020-08-20 | DI.MRI.S_ITS ---
PROCEDURE: MR LUMBAR SPINE WO CON INDICATIONS: Low back pain TECHNIQUE: Noncontrast sagittal T1 spin echo and T2 fast echo, sagittal STIR, axial T1 and T2 fast spin echo through the lumbar spine. In cases with scoliosis, additional coronal T2 fast spin echo may be performed. COMPARISON: None. FINDINGS: Image quality: Excellent. Alignment and Curvature: Straightening of the usual lumbar lordosis. Otherwise normal alignment. Vertebral body heights maintained. Bone Marrow: No suspicious focal marrow signal abnormality. Spinal Cord: Normal position and appearance of the conus. Regional Soft Tissues: Prevertebral and paraspinous soft tissues are unremarkable. T12-L1: No spinal canal or neural foraminal stenosis. L1-L2: No spinal canal or neural foraminal stenosis. L2-L3: Disc desiccation and disc height loss. Circumferential disc bulge flattens the ventral thecal sac without mass effect upon the traversing L3 nerve roots. No neural foraminal stenosis. Mild facet hypertrophy. L3-L4: Disc desiccation and disc height loss. Focal annular fissure of the disc in the right paracentral and central zones. Diffuse disc bulge with a superimposed broad-based posterior disc protrusion flattens the ventral thecal sac. No mass effect upon the traversing L4 nerve roots. Foraminal components of the disc bulge contribute to mild neural foraminal narrowing on the right. L4-L5: Disc desiccation and disc. Focal annular fissure in the central and paracentral zones. Diffuse disc bulge and a superimposed broad-based posterior disc protrusion height loss with flattening and indentation of the ventral thecal sac producing mild displacement of the descending L5 nerve roots in both subarticular zones. Mild bilateral neural foraminal narrowing due to foraminal components of the disc bulge and facet hypertrophy. L5-S1: Disc desiccation and disc height loss with a focal annular fissure in the right paracentral zone. Disc bulge and a superimposed broad-based posterior disc protrusion with mild mass effect upon the descending right greater than left S1 nerve roots in both subarticular zones. Mild to moderate neural foraminal narrowing, right greater than left. IMPRESSION: Multilevel multifactorial degenerative changes, worst from L3-L4 through L5-S1. Focal annular fissures of the L3-L4 through L5-S1 intervertebral discs, potential sources of nonradicular axial back pain. Potential areas of focal nerve root impingement at L4-L5 and L5-S1. Correlate for any corresponding L5 or S1 radicular symptoms at these levels, respectively. Dictated by: Darci Arreaga M.D. on 08/20/2020 at 15:31 Approved by: Darci Arreaga M.D. on 08/20/2020 at 15:39
== END ==
PROVIDERS: PCP Internal Medicine; Referring Provider Anesthesiology Pain Medicine; Visit Provider Anesthesiology Pain Medicine
DX: M54.5 Low back pain (principal); M47.816 Spondylosis without myelopathy or radiculopathy, lumbar region; M47.817 Spondylosis without myelopathy or radiculopathy, lumbosacral region
CPT/HCPCS: 72148

== ENCOUNTER → 2020-12-10 14:31 | Outpatient (CLI) | payer MEDICARE, OTHER, SELFPAY ==
--- NOTE | 2020-12-10 | DI.MG.S_ITS ---
BILATERAL DIGITAL SCREENING MAMMOGRAM 3D/2D WITH CAD: 12/10/2020 CLINICAL: Routine screening. Family history of breast cancer. Comparison is made to exams dated: 10/22/2017 mammogram - [facility] and 09/07/2018 mammogram - [facility]. There are scattered fibroglandular elements in both breasts. Current study was also evaluated with a Computer Aided Detection (CAD) system. No significant masses, calcifications, or other findings are seen in either breast. IMPRESSION: NEGATIVE There is no mammographic evidence of malignancy. A 1 year screening mammogram is recommended. This exam was interpreted at Station ID: [id number]. NOTE: For mammograms, a report in lay terms will be sent to the patient. Approximately 15% of breast malignancies will not be visualized mammographically. In the management of a palpable breast mass, a negative mammogram must not discourage biopsy of a clinically suspicious lesion. Electronically Signed By: Clemente ratliff/katie:12/10/2020 15:10:57 letter sent: Normal Exam ACR BI-RADS Category 1: Negative [id number]
== END ==
PROVIDERS: PCP Internal Medicine; Referring Provider Internal Medicine; Visit Provider Internal Medicine
DX: Z12.31 Encounter for screening mammogram for malignant neoplasm of breast (principal); Z80.3 Family history of malignant neoplasm of breast
CPT/HCPCS: 77063; 77067

== ENCOUNTER → 2021-07-17 13:20 | Outpatient (CLI) | payer MEDICARE, OTHER, SELFPAY ==
--- NOTE | 2021-07-17 | DI.ECHO.S_ITS ---
[facility] +---------+ : : [id number] : : : : [id number] : : : : Phone: [phone]---------+ Echocardiogram Report + + :Name: EVLIRA MORENO Study Date: 07/17/2021 Height: 59 in : :[facility] ReadingLocation: Weight: 120 lb : : Gender: Female BSA: 1.5 m2 : :: 1955 Age: 66 yrs BP: 140/76 mmHg: :Reason For Study: CARDIAC MURMUR : :Ordering Physician: KEVIN, : :SWATI Performed By: Harini Vela : :Referring: SWATI BROWN : + + Interpretation Summary The left ventricle is normal in size. The ejection fraction is estimated to be 60-65%. The right ventricle is normal in size and function. There is moderate tricuspid regurgitation. The right ventricular systolic pressure is estimated to be at least 32 mmHg based on an estimated right atrial pressure of 3 mm Hg. The ascending aorta is moderately enlarged. 4.0 cm in diameter. Body surface area 1.5 mA?. Procedure: A two-dimensional transthoracic echocardiogram with color flow and Doppler was performed. The study quality was technically adequate. There is no prior echocardiogram noted for this patient. The patient was in sinus rhythm with heart rates between 68-79 bpm during the exam. Left Ventricle: The left ventricle is normal in size. Proximal septal thickening is noted. There is no echo evidence for significant left ventricular outflow tract obstruction. There is no thrombus. The ejection fraction is estimated to be 60-65%. There are no focal wall motion abnormalities. MV E/A: 1.0 Med Peak E' Mathew: 8.9 cm/sec E/E' med: 12.2. Right Ventricle: The right ventricle is normal in size and function. Atria: The left atrial size is normal. Right atrial size is normal. There is no Doppler evidence for an interatrial shunt. Mitral Valve: There is mild mitral annular calcification. Redundant elongated chordae are noted. There is trace mitral regurgitation. Aortic Valve: The aortic valve is trileaflet. The aortic valve opens well. There is no aortic valve stenosis. No aortic regurgitation is present. Tricuspid Valve: The tricuspid valve is normal. There is moderate tricuspid regurgitation. The right ventricular systolic pressure is estimated to be at least 32 mmHg based on an estimated right atrial pressure of 3 mm Hg. Pulmonic Valve: The pulmonic valve leaflets are thin and pliable; valve motion is normal. There is trace pulmonic regurgitation. Great Vessels: The aortic root is normal size. The ascending aorta is moderately enlarged. The IVC is of normal diameter and collapses greater than 50% with a sniff. This suggests a low right atrial pressure of 3 mm Hg. Pericardium/ Pleura There is no pericardial effusion. There is no pleural effusion. MMode/2D Measurements & Calculations LVIDd: 4.4 cm LVOT diam: 1.9 cm LVIDs: 2.7 cm Ao root diam: 3.4 cm FS: 38.9 % asc Aorta Diam: 4.0 cm IVSd: 0.73 cm Ao Arch Diam (Prox Trans): 3.4 cm LVPWd: 0.93 cm LV johns. diameter/BSA (cm/m^2): 3.0 LV sys. diameter/BSA (cm/m^2): 1.8 LA A2 area: 17.5 cm2 RA long axis: 4.1 cm LA A4 area: 13.3 cm2 RA area: 10.1 cm2 LA length (vol): 4.6 cm RA vol: 20.9 ml LA vol: 42.6 ml RA : 14.1 ml/m2 LA vol index: 28.7 ml/m2 IVC diam: 1.4 cm RVD1 (basal): 3.8 cm TAPSE: 2.1 cm Doppler Measurements & Calculations Ao V2 max: 181.2 cm/sec LVOT Max Mathew: 129.4 cm/sec Ao V2 mean: 123.4 cm/sec LV V1 max P.7 mmHg Ao max P.1 mmHg LV V1 VTI: 28.9 cm Ao mean P.8 mmHg BEV(I,D): 1.9 cm2 Ao V2 VTI: 41.8 cm BEV(V,D): 2.0 cm2 sev ratio: 0.69 BEV indexed to BSA (cm^2/m^2): 1.3 MV E max mathew: 108.3 cm/sec TR max mathew: 267.9 cm/sec MV A max mathew: 104.3 cm/sec TR max P.7 mmHg MV E/A: 1.0 PA V2 max: 108.8 cm/sec Med Peak E' Mathew: 8.9 cm/sec PA V2 mean: 69.4 cm/sec E/E' med: 12.2 PA mean P.3 mmHg Lat Peak E' Mathew: 7.1 cm/sec PA pr(Accel): 25.9 mmHg E/E' lat: 15.3 E/e' average: 13.8 MV dec time: 0.23 sec SV(MANNY): 79.4 ml Reading Physician:02:34 PM
== END ==
PROVIDERS: PCP Student in an Organized Health Care Education/Training Program; Referring Provider Student in an Organized Health Care Education/Training Program; Visit Provider Student in an Organized Health Care Education/Training Program
DX: I07.1 Rheumatic tricuspid insufficiency (principal); I77.89 Other specified disorders of arteries and arterioles; R01.1 Cardiac murmur, unspecified
CPT/HCPCS: 93306

== ENCOUNTER 2021-11-27 16:19 | Emergency (ER) | payer MEDICARE, OTHER, SELFPAY ==
[2021-11-27 16:35] VITALS: BP 177/84; PULSE 79; RESP 18; TEMP 36.1; O2SAT 100; BMI 23.8
--- NOTE | 2021-11-27 18:38 | ED.SKABFB ---
HPI - Skin/Abscess/Foreign Bdy <Keri Mahmood PA-C - Last Filed: 11/27/21 19:51> General Chief complaint: Skin/Abscess/Foreign Body Stated complaint: INFECTION ON SKIN BY RT BREAST Time Seen by Provider: 11/27/21 18:09 Source: patient Mode of arrival: Family Vehicle Limitations: no limitations History of Present Illness HPI narrative: At patient is extremely pleasant 66-year-old female, who noted slow healing wound in her inner portion over the right breast. She had tried [id number] preparation, first aide antibiotic, which did not seem to make a difference, the wound continues to get larger, and some purulent discharge noted . Patient denies a breast hardness, lumps or masses. She and her spouse who see provider at local [facility], were told to seek attention in ED Related Data Home Medications Medication Instructions Recorded Confirmed amlodipine 10 mg tablet (Norvasc) 10 mg PO QAM 07/13/17 03/28/19 cetirizine 10 mg tablet 10 mg PO QAM 07/13/17 03/28/19 fluticasone propionate 220 2 puff inhalation BID 07/13/17 03/28/19 mcg/actuation HFA aerosol inhaler hydrocortisone 5 mg tablet 15 mg PO QAM 07/13/17 03/28/19 losartan 100 mg tablet 100 mg PO BEDTIME 07/13/17 03/28/19 omeprazole 20 mg capsule,delayed 20 mg PO QAM 07/13/17 03/28/19 release salmeterol 50 mcg/dose blister 1 inh inhalation BID 07/13/17 03/28/19 powder for inhalation trazodone 50 mg tablet 25 - 50 mg PO BEDTIME PRN Sleep 07/13/17 03/28/19 albuterol sulfate 90 mcg/actuation 2 puff inhalation Q4-6H PRN sob 07/28/17 03/28/19 aerosol inhaler fluticasone propionate 50 2 spray intranasal DAILY 07/28/17 03/28/19 mcg/actuation nasal spray,suspension hydrocortisone 5 mg tablet 5 mg PO QPM 07/28/17 03/28/19 Previous Rx's Medication Instructions Recorded amoxicillin 875 mg-potassium 1 tab PO Q12H #20 tabs 11/27/21 clavulanate 125 mg tablet mupirocin calcium 2 % topical cream 1 applic topical BID #30 grams 11/27/21 Allergies Allergy/AdvReac Type Severity Reaction Status Date / Time No Known Drug Allergies Allergy Verified 07/27/20 17:33 Review of Systems <Keri Mahmood PA-C - Last Filed: 11/27/21 19:51> Review of Systems Narrative: GENERAL: Denies chills, fatigue, malaise, fever, sweats. HEENT: Denies sinus pain, ear pain, sore throat, difficulty swallowing, dizziness. RESPIRATORY: Denies dyspnea, cough, wheezing, hemoptysis, sputum. CARDIOVASCULAR: Denies chest pain, palpitations, orthopnea, edema, GASTROINTESTINAL: Denies nausea, vomiting, abdominal pain, diarrhea, constipation, melena. : Denies dysuria, frequency, incontinence, hematuria, urinary retention. MUSCULOSKELETAL: denies weakness, joint pain, or bony pain SKIN: Denies rash, but skin lesion slow to heal as per HPI n right inner breast NEUROLOGIC: Denies weakness, headache, numbness, change in speech, confusion, seizures, incoordination. PSYCHIATRIC: No concerning psychosocial issues. Patient History <Keri Mahmood PA-C - Last Filed: 11/27/21 19:51> Medical History (Updated 11/27/21 @ 18:50 by Keri Mahmood PA-C) Adrenal insufficiency Asthma Chest pain, non-cardiac Chronic insomnia Chronic pain syndrome Constipation Esophageal reflux Finger infection History of hepatitis B History of syncope History of systemic steroid therapy History of urinary tract infection Hypertension Hyponatremia Left hand pain Left wrist pain Murmur Osteoporosis Pain of left thumb Prediabetes Seasonal allergies Surgical History H/O: hysterectomy History of colonoscopy Hx of cholecystectomy Hx of prior ablation treatment Social History household members: spouse Smoking Status: Never smoker alcohol intake: former Smoking Status: Never smoker alcohol intake frequency: holidays/special occasions only Substance Use Type: does not use Exam <Keri Mahmood PA-C - Last Filed: 11/27/21 19:51> Narrative Exam Narrative: GENERAL: 66 year old patient appears stated age. Well-developed patient, in no distress. appears comfortable on a hospital bed HEAD: Atraumatic. Normocephalic. EYES: Pupils equal round and reactive. Extraocular motions intact. No scleral icterus. No injection or drainage. ENT: Nose without bleeding, purulent drainage. Throat without erythema, tonsillar hypertrophy or exudate. Airway patent. NECK: Trachea midline. Non tender CARDIOVASCULAR: Regular rate and rhythm without murmurs, gallops, or rubs. RESPIRATORY: Clear to auscultation. Breath sounds equal bilaterally. No wheezes, rales, or rhonchi. GASTROINTESTINAL: Abdomen soft, non-tender, nondistended. EXTREMITIES: No edema or joint tenderness. BACK: Nontender without deformity or crepitance. No flank tenderness. NEURO: AOx3. cranial nerves are intact SKIN: no rashes there is X 2.5 cm circumfered erythema with nodule and some exudate cw localized skin abscess right axillary LN Rt breast exam no masses no nipple discharge no nodularity no breast color change Initial Vital Signs Initial Vital Signs: Vital Signs Temperature 97.0 F L 11/27/21 16:35 Pulse Rate 79 11/27/21 16:35 Respiratory Rate 18 11/27/21 16:35 Blood Pressure 177/84 H 11/27/21 16:35 Pulse Oximetry 100 11/27/21 16:35 Oxygen Delivery Method 11/27/21 16:35 <DO Kajal Boland Last Filed: 11/28/21 07:17> Initial Vital Signs Initial Vital Signs: Vital Signs Temperature 97.0 F L 11/27/21 16:35 Pulse Rate 79 11/27/21 16:35 Respiratory Rate 18 11/27/21 16:35 Blood Pressure 177/84 H 11/27/21 16:35 Pulse Oximetry 100 11/27/21 16:35 Oxygen Delivery Method 11/27/21 16:35 Course <Keri Mahmood PA-C - Last Filed: 11/27/21 19:51> Course Course Narrative: patient was observed in ED she Vital Signs Vital signs: Vital Signs - 8 hr 11/27/21 16:35 11/27/21 19:07 Temperature 97.0 F L Pulse Rate 79 68 Respiratory Rate 18 16 Blood Pressure 177/84 H 135/82 Pulse Oximetry 100 98 Oxygen Delivery Method Room Air <DO Kajal Boland Last Filed: 11/28/21 07:17> Vital Signs Vital signs: Vital Signs - 8 hr 11/27/21 16:35 11/27/21 19:07 Temperature 97.0 F L Pulse Rate 79 68 Respiratory Rate 18 16 Blood Pressure 177/84 H 135/82 Pulse Oximetry 100 98 Oxygen Delivery Method Room Air MDM - Skin/Abscess/Foreign Bdy <Keri Mahmood PA-C - Last Filed: 11/27/21 19:51> Differential Diagnosis Differential diagnosis: Likely abscess of skin or subcutaneous tissue and cellulitis MDM Narrative Medical decision making narrative: patient has skin cellulitis and abscess right breast The area assessed and deemed not suitable for IXD She however will benefit from ABX orally , augmentin , and topical antibiotic cream Mupirocin 2.5 percent Patient understands and agrees with diagnosis and plan. Return precautions given and questions answered to their apparent satisfaction Discharge Plan Departure Patient Disposition: Home Clinical Impression: Cellulitis of right breast Instructions: DI for Skin Abscess Activity Restrictions/Additional Instructions: *You have been diagnosed with skin abscess arising on right breast *What to do: *Take medications as directed *Follow up with your primary care provider in 2-3 days, call for an appointment. Let them know you were seen in the Emergency Department and that we ask that you be seen in follow up *Return to ER if you should have any new, worsening or concerning symptoms, such as fever 101F, neck pain or stiffness, vomiting, worsening skin redness and skin discharge Prescriptions: New amoxicillin-pot clavulanate 875-125 mg tablet 1 tab PO Q12H Qty: 20 0RF mupirocin calcium 2 % cream 1 applic topical BID Qty: 30 0RF No Action hydrocortisone 5 mg Tablet 15 mg PO QAM trazodone 50 mg Tablet 25 - 50 mg PO BEDTIME PRN (Reason: Sleep) cetirizine 10 mg Tablet 10 mg PO QAM amlodipine [Norvasc] 10 mg Tablet 10 mg PO QAM salmeterol 50 mcg/dose Blister With Device 1 inh INHALATION BID omeprazole 20 mg Capsule,Delayed Release(Dr/Ec) 20 mg PO QAM fluticasone propionate 220 mcg/actuation Hfa Aerosol Inhaler 2 puff INHALATION BID losartan 100 mg Tablet 100 mg PO BEDTIME hydrocortisone 5 mg Tablet 5 mg PO QPM albuterol sulfate 90 mcg/actuation Hfa Aerosol Inhaler 2 puff INHALATION Q4-6H PRN (Reason: sob) fluticasone propionate 50 mcg/actuation [place],Suspension 2 spray INTRANASAL DAILY Referrals: Gustavo Verdugo DO [Primary Care Provider] - Visit Report Forms: Patient Portal/API <Anthony Gomez DO - Last Filed: 11/28/21 07:17> Cosign ED Attending Cosignature Attestation: Dr Gomez Co-Sign Statement: I was available for consultation during this patient's emergency department visit. This chart is signed by myself for administrative purposes only. I did not have direct contact with this patient during this visit. They were seen independently by the APC.
[2021-11-27 19:07] VITALS: BP 135/82; PULSE 68; RESP 16; O2SAT 98
== END 2021-11-27 19:08 | disposition home or self-care (01) ==
PROVIDERS: Emergency Provider Physician Assistant Medical; PCP Student in an Organized Health Care Education/Training Program
DX: N61.0 Mastitis without abscess (principal)
CPT/HCPCS: 99281